=== PATIENT | female | born 1985 | race Caucasian/White ===

== ENCOUNTER 2018-02-02 12:21 | Emergency (ER) | payer OTHER ==
--- NOTE | 2018-02-02 13:15 | EDPHYS ---
Physician Documentation [facility] Name: Diana Leal Age: 32 yrs Sex: Female : 1985 Arrival Date: 02/02/2018 Time: 12:24 Bed 11 Private MD: ED Physician Wan Preston HPI: 02/02 15:00 This 32 yrs old Female presents to ER via Ambulatory with complaints of snw Medication Refill. 15:00 The patient presents to the emergency department requesting refill(s) for: Effexor. The snw patient chronically suffers from anxiety, depression. The patient has experienced similar episodes in the past. It is unknown whether or not the patient has recently seen a physician. + 15 wk IUP. 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 - Social history:: Smoking status: Patient/guardian denies using tobacco. - Ebola Screening: : Patient negative for fever greater than or equal to 101.5 degrees Fahrenheit, and additional compatible Ebola Virus Disease symptoms Patient denies exposure to infectious person Patient denies travel to an Ebola-affected area in the 21 days before illness onset No symptoms or risks identified at this time. ROS: 14:58 Constitutional: Negative for fever, chills, and weight loss, Eyes: Negative for injury, snw pain, redness, and discharge, ENT: Negative for injury, pain, and discharge, Neck: Negative for injury, pain, and swelling, Cardiovascular: Negative for chest pain, palpitations, and edema, Respiratory: Negative for shortness of breath, cough, wheezing, and pleuritic chest pain. 14:58 Back: Negative for injury and pain, : Negative for injury, bleeding, discharge, and swelling, MS/Extremity: Negative for injury and deformity, Skin: Negative for injury, rash, and discoloration, Neuro: Negative for headache, weakness, numbness, tingling, and seizure. 14:58 Abdomen/GI: Positive for , Negative for abdominal pain, vaginal bleeding. 14:58 Psych: Positive for anxiety, mild vertigo, nausea. Exam: 14:57 Constitutional: This is a well developed, well nourished patient who is awake, alert, snw and in no acute distress. Head/Face: Normocephalic, atraumatic. Eyes: Pupils equal round and reactive to light, extra-ocular motions intact. Lids and lashes normal. Conjunctiva and sclera are non-icteric and not injected. Cornea within normal limits. Periorbital areas with no swelling, redness, or edema. ENT: Nares patent. No nasal discharge, no septal abnormalities noted. Tympanic membranes are normal and external auditory canals are clear. Oropharynx with no redness, swelling, or masses, exudates, or evidence of obstruction, uvula midline. Mucous membranes moist. Neck: Trachea midline, no thyromegaly or masses palpated, and no cervical lymphadenopathy. Supple, full range of motion without nuchal rigidity, or vertebral point tenderness. No Meningismus. Chest/axilla: Normal chest wall appearance and motion. Nontender with no deformity. No lesions are appreciated. Cardiovascular: Regular rate and rhythm with a normal S1 and S2. No gallops, murmurs, or rubs. Normal PMI, no JVD. No pulse deficits. Respiratory: Lungs have equal breath sounds bilaterally, clear to auscultation and percussion. No rales, rhonchi or wheezes noted. No increased work of breathing, no retractions or nasal flaring. Abdomen/GI: Soft, non-tender, with normal bowel sounds. No distension or tympany. No guarding or rebound. No evidence of tenderness throughout. Gravid Back: No spinal tenderness. No costovertebral tenderness. Full range of motion. Skin: Warm, dry with normal turgor. Normal color with no rashes, no lesions, and no evidence of cellulitis. MS/ Extremity: Pulses equal, no cyanosis. Neurovascular intact. Full, normal range of motion. Neuro: Awake and alert, GCS 15, oriented to person, place, time, and situation. Cranial nerves II-XII grossly intact. Motor strength 5/5 in all extremities. Sensory grossly intact. Cerebellar exam normal. Normal gait. 14:57 Psych: Behavior/mood is anxious, Oriented to person, place, time. Vital Signs: 13:25 BP 111 / 76; Pulse 98; Resp 16; Temp 98.2; Pulse Ox 100% on R/A; Pain 0/10; iw MDM: 13:14 Patient medically screened. snw 15:00 Data reviewed: vital signs, nurses notes. Counseling: I had a detailed discussion with snw the patient and/or guardian regarding: the historical points, exam findings, and any diagnostic results supporting the discharge/admit diagnosis, the need for outpatient follow up, for definitive care, to return to the emergency department if symptoms worsen or persist or if there are any questions or concerns that arise at home. Special discussion: Based on the history and exam findings, there is no indication for further emergent testing or inpatient evaluation. I discussed with the patient/guardian the need to see the OB Gyne specialist for further evaluation of the symptoms. Administered Medications: No medications were administered Disposition: 15:11 Co-signature as Attending Physician, Wan Preston MD I agree with the assessment and kdr plan of care. Disposition: 02/02/18 13:14 Discharged to Home. Impression: Patient's unintentional underdosing of medication regimen for other reason. - Condition is Stable. - Discharge Instructions: Medicine Refill at the Emergency Department, Second Trimester of , [id number]. - Prescriptions for Vitamin 27- 0.8 mg Oral Tablet - take 1 tablet by ORAL route once daily; 60 tablet. promethazine 25 mg Oral Tablet - take 1 tablet by ORAL route every 6 hours As needed; 20 tablet. - Medication Reconciliation Form, Thank You Letter, Antibiotic Education, Prescription Opioid Use form. - Follow up: Private Physician; When: 2 - 3 days; Reason: Recheck today's complaints, Continuance of care, Re-evaluation by your physician. Follow up: Emergency Department; When: As needed; Reason: Worsening of condition. Signatures: Wan Preston MD MD kdr Therrien, Shelly, MICHELINE-C PARKING ENFORCEMENT MANAGER-Mikw Melly Mclaughlin RN RN iw Corrections: (The following items were deleted from the chart) 13:25 13:14 02/02/2018 13:14 Discharged to Home. Impression: Patient's unintentional iw underdosing of medication regimen for other reason. Condition is Stable. Forms are Medication Reconciliation Form, Thank You Letter, Antibiotic Education, Prescription Opioid Use. Follow up: Private Physician; When: 2 - 3 days; Reason: Recheck today's complaints, Continuance of care, Re-evaluation by your physician. Follow up: Emergency Department; When: As needed; Reason: Worsening of condition. snw
--- NOTE | 2018-02-02 13:15 | ER ---
Nurse's Notes [facility] Name: Diana Leal Age: 32 yrs Sex: Female : 1985 Arrival Date: 02/02/2018 Time: 12:24 Bed 11 Private MD: Diagnosis: Patient's unintentional underdosing of medication regimen for other reason Presentation: 02/02 12:47 Presenting complaint: Patient states: is 15 weeks , was taking Effexor 75 and iw Wellbutrin 100 but has been out of Effexor for 4 days due to insurance issues and change in doctors, pt still currently on Wellbutrin and was supposed to be weaned off Effexor, now feels like she is having withdrawal symptoms. Transition of care: patient was not received from another setting of care. Onset of symptoms was February 02, 2018. Risk Assessment: Do you want to hurt yourself or someone else? Patient reports no desire to harm self or others. Initial Sepsis Screen: Does the patient meet any 2 criteria? No. Patient's initial sepsis screen is negative. Does the patient have a suspected source of infection? No. Patient's initial sepsis screen is negative. Care prior to arrival: None. 12:47 Method Of Arrival: Ambulatory iw 12:47 Acuity: SEVERIANO 4 iw Triage Assessment: 12:50 General: Appears in no apparent distress. Behavior is calm, cooperative. 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 - Social history:: Smoking status: Patient/guardian denies using tobacco. - Ebola Screening: : Patient negative for fever greater than or equal to 101.5 degrees Fahrenheit, and additional compatible Ebola Virus Disease symptoms Patient denies exposure to infectious person Patient denies travel to an Ebola-affected area in the 21 days before illness onset No symptoms or risks identified at this time. Screenin:20 Abuse screen: Denies threats or abuse. Denies injuries from another. Nutritional iw screening: No deficits noted. Tuberculosis screening: No symptoms or risk factors identified. Fall Risk None identified. Assessment: 13:00 General: Appears in no apparent distress. comfortable, Behavior is calm, cooperative. iw Pain: Denies pain. Neuro: Level of Consciousness is awake, alert, obeys commands, Oriented to person, place, time, situation, Moves all extremities. Full function. Cardiovascular: Patient's skin is warm and dry. Respiratory: Respiratory effort is even, unlabored, Respiratory pattern is regular, symmetrical. GI: Reports nausea. Derm: Skin is intact, is healthy with good turgor. Musculoskeletal: Range of motion: intact in all extremities. Vital Signs: 13:25 BP 111 / 76; Pulse 98; Resp 16; Temp 98.2; Pulse Ox 100% on R/A; Pain 0/10; iw ED Course: 12:24 Patient arrived in ED. tw3 12:30 Jazz Murrell FNP-C [facility]. snw 12:30 Wan Preston MD is Attending Physician. snw 12:44 Melly Mclaughlin, RN is Primary Nurse. iw 12:49 Triage completed. iw 12:50 Arm band placed on. iw 12:50 Patient has correct armband on for positive identification. iw 13:24 No provider procedures requiring assistance completed. Patient did not have IV access iw during this emergency room visit. Administered Medications: No medications were administered Outcome: 13:14 Discharge ordered by . snw 13:24 Discharged to home ambulatory, with family. iw 13:24 Condition: good 13:24 Discharge instructions given to patient, family, Instructed on discharge instructions, follow up and referral plans. medication usage, Demonstrated understanding of instructions, follow-up care, medications, Prescriptions given X 2. 13:25 Patient left the ED. iw Signatures: Jazz Murrell FNP-C SLOT FLOOR SUPERVISOR-Csnw Melly Mclaughlin RN RN iw David, Agustina tw3
== END 2018-02-02 13:25 | disposition home or self-care (01) ==
LOC: ER 12:21
DX: O26.892 Other specified pregnancy related conditions, second trimester (principal); Z76.0 Encounter for issue of repeat prescription; Z91.138 Patient's unintentional underdosing of medication regimen for other reason
CPT/HCPCS: 99282

== ENCOUNTER 2018-07-28 12:20 | Emergency (ER) | payer OTHER ==
--- OUTSIDE RECORDS SUMMARY | 2018-07-28 12:22 | XMS REPORT ---
:1985 [facility] Address [address] [place] [address] Care Team Providers Name Role Phone Unavailable Unavailable Unavailable Problems This patient has no known problems. Allergies, Adverse Reactions, Alerts This patient has no known allergies or adverse reactions. Medications This patient has no known medications.
[2018-07-28] MEDS ORDERED: BUPIVACAINE 0.5% PF 10 ML VIAL ONE (12:49)
[2018-07-28] MEDS ORDERED: LIDOCAINE 1% MPF 5 ML VIAL ONE (12:49)
[2018-07-28] MEDS ORDERED: LIDOCAINE 1% W/EPI 1:100,000 MDV 50 ML VIAL ONE (12:57)
[2018-07-28] MEDS ORDERED: KETOROLAC 30 MG/ML INJ ONE (13:30)
[2018-07-28] MEDS ORDERED: Magnesium Sulfate 2gm IVPB 2 G/50 ML BAG IV ONE (14:11)
[2018-07-28 14:22] LABS: Urine Appearance CLOUDY; Urine Blood 2+ (NEG); Urine Color DK YELLOW; Urine Glucose NEGATIVE (NEG); Urine Protein 1+ (NEG); Urine Specific Gravity >=1.030 (1.005-1.030); Urine Urobilinogen 0.2 mg/dL (0.2-1.0)
[2018-07-28 14:26] LABS: Absolute Lymphocytes (CBC) 1.5 K/uL (0.7-4.9); Absolute Monocytes 0.5 K/uL (0.1-1.3); Absolute Neutrophil 3.8 K/uL (1.8-8.0); Basophils % 0.6 % (0-1.3); Eosinophils % 3.1 % (0-4.4); Hematocrit 29.4 % (36.0-45.0); Lymphocytes % 25.6 % (15.3-44.8); MPV 8.1 fL (7.6-11.3); Monocytes % 7.4 % (3.3-12.3); RBC Red Blood Cell Count 3.56 M/uL (3.86-4.86)
[2018-07-28 14:36] LABS: Urine Bilirubin NEGATIVE (NEG)
[2018-07-28 14:37] LABS: Urine Microscopic Reflex ORDER UMIC
[2018-07-28 14:41] LABS: Urine RBC <5 /HPF (NONE SEEN)
[2018-07-28 14:42] LABS: Urine Bacteria 20-50 /HPF (<20)
[2018-07-28 14:43] LABS: Urine Culture Reflex Order REFLEXED; Urine Mucus 2+ /HPF (NONE SEEN)
[2018-07-28 14:44] LABS: Urine Specific Gravity 1.025 (1.005-1.030)
[2018-07-28 14:47] LABS: ALT/SGPT 49 U/L (12-78); AST/SGOT 109 U/L (15-37); Albumin 2.9 g/dL (3.4-5.0); Alkaline Phosphatase 127 U/L (45-117); BUN Blood Urea Nitrogen 13 mg/dL (7-18); Bicarbonate 23 mmol/L (21-32); Bilirubin Total 0.3 mg/dL (0.2-1.0); Glucose Level 82 mg/dL (74-106); Potassium 4.1 mmol/L (3.5-5.1); Protein, Total 7.3 g/dL (6.4-8.2); Sodium Level 140 mmol/L (136-145)
[2018-07-28] MEDS ORDERED: METOCLOPRAMIDE 10 MG/2mL INJ ONE (14:59)
[2018-07-28] MEDS ORDERED: DIPHENHYDRAMINE 50 MG/ML VIAL ONE (14:59)
[2018-07-28] MEDS ORDERED: NA CHLORIDE 0.9% 250 ML ONE (15:00)
[2018-07-28] MEDS ORDERED: CEFTRIAXONE/SWI 1gm 1 GM/10 ML SYR ONE (15:02)
--- NOTE | 2018-07-28 15:58 | EDPHYS ---
Physician Documentation [facility] Name: Diana Leal Age: 32 yrs Sex: Female : 1985 Arrival Date: 07/28/2018 Time: 12:23 Bed 13 Private MD: ED Physician Amanuel Jamil HPI: 07/28 13:03 This 32 yrs old Female presents to ER via Ambulatory with complaints of High ps1 Blood Pressure, Toothache, Headache. 13:03 Patient states that her filling fell out and she has had pain for over a week. She has ps1 used Cavit for pain control. Now feels like she has a headache but was concerned because her BP was elevated and she just had a 4 weeks ago as she had previous c-sections. Concerned for pain vs. preeclampsia. Pain rated as moderate. No fever, scotoma or FND. . 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 - Social history:: Smoking status: Patient/guardian denies using tobacco. - Ebola Screening: : Patient negative for fever greater than or equal to 101.5 degrees Fahrenheit, and additional compatible Ebola Virus Disease symptoms. ROS: 13:03 Constitutional: Negative for fever, chills, and weight loss, Eyes: Negative for injury, ps1 pain, redness, and discharge, Cardiovascular: Negative for chest pain, palpitations, and edema, Respiratory: Negative for shortness of breath, cough, wheezing, and pleuritic chest pain, Abdomen/GI: Negative for abdominal pain, nausea, vomiting, diarrhea, and constipation, MS/Extremity: Negative for injury and deformity, Skin: Negative for injury, rash, and discoloration, Neuro: Negative for headache, weakness, numbness, tingling, and seizure. 13:03 ENT: Positive for dental pain. Exam: 13:03 Constitutional: This is a well developed, well nourished patient who is awake, alert, ps1 and in no acute distress. Head/Face: Normocephalic, atraumatic. Eyes: Pupils equal round and reactive to light, extra-ocular motions intact. Lids and lashes normal. Conjunctiva and sclera are non-icteric and not injected. Chest/axilla: Normal chest wall appearance and motion. Nontender with no deformity. No lesions are appreciated. 13:03 Respiratory: Lungs have equal breath sounds bilaterally, clear to auscultation and percussion. No rales, rhonchi or wheezes noted. No increased work of breathing, no retractions or nasal flaring. Abdomen/GI: Soft, non-tender, with normal bowel sounds. No distension or tympany. No guarding or rebound. No evidence of tenderness throughout. MS/ Extremity: Pulses equal, no cyanosis. Neurovascular intact. Full, normal range of motion. Neuro: Awake and alert, GCS 15, oriented to person, place, time, and situation. Cranial nerves II-XII grossly intact. Sensory grossly intact. 13:03 ENT: Nose: is normal, Examination of the other nostril shows no obvious abnormality, Mouth: is normal, Dental exam: dental caries, that is moderate, specifically in the upper left second molar (#15). 13:03 Cardiovascular: Rate: tachycardic, Rhythm: regular. Vital Signs: 12:28 BP 150 / 106; Pulse 122; Resp 16; Temp 97.4; Pulse Ox 98% on R/A; Weight 102.97 kg; la1 Height 5 ft. 2 in. (157.48 cm); Pain 7/10; 15:01 BP 146 / 110; Pulse 107; Resp 16 S; Pulse Ox 100% on R/A; jl7 15:55 BP 142 / 105; Pulse 108; Resp 16 S; Pulse Ox 100% on R/A; jl7 12:28 Body Mass Index 41.52 (102.97 kg, 157.48 cm) la1 Procedures: 13:03 Nerve block: (dental) of periapical block, Medication: Lidocaine 1% with epinephrine, ps1 Marcaine 0.5%, Amount: 2 mls were injected, Effect: the patient has resolution of the pain, Performed by Amanuel Jamil MD. MDM: 13:03 Data reviewed: vital signs, nurses notes, and as a result, I will discharge patient. ps1 Response to treatment: the patient's symptoms have resolved after treatment. 13:18 Patient medically screened. ps1 15:58 ED course: patient maintained a headache until mag and toradol given. Her BP then ps1 improved and headache improved. Dental pain completely resolved. Protienuria does not meet criteria for preeclampsia. Mid range pressures. Improved. No scotoma. Will have patient follow up with Dr. Lopez in [place]. . 07/28 13:51 Order name: CBC with Diff; Complete Time: 14:28 ps1 07/28 13:51 Order name: CMP; Complete Time: 14:51 ps1 07/28 13:51 Order name: Uric Acid; Complete Time: 14:51 ps1 07/28 13:51 Order name: UA; Complete Time: 14:45 ps1 07/28 13:51 Order name: Magnesium; Complete Time: 14:51 ps1 07/28 14:15 Order name: Urine --Ancillary (enter results); Complete Time: 14:45 eb 07/28 14:40 Order name: Urine Microscopic Only; Complete Time: 14:45 EDMS 07/28 14:44 Order name: Urine Culture EDMS Administered Medications: 13:23 Drug: TORadol 30 mg Route: IM; Site: right deltoid; [facility] 13:50 Follow up: Response: No adverse reaction; Pain is unchanged, physician notified jl7 14:15 Drug: Magnesium Sulfate 2 grams {Note: Verified infusion rate with Dr. Jamil.} Route: jl IVPB; Infused Over: 30 mins; Site: right wrist; 14:45 Follow up: Response: No adverse reaction; IV Status: Completed infusion jl7 14:53 Drug: Benadryl 25 mg Route: IVP; Site: right wrist; jl7 15:45 Follow up: Response: No adverse reaction; Pain is decreased jl7 14:55 Drug: Rocephin 1 grams Route: IV; Rate: calculated rate; Site: right wrist; jl7 14:58 Follow up: Response: No adverse reaction; IV Status: Completed infusion jl7 14:59 Drug: Reglan 20 mg Route: IVP; Site: right wrist; jl7 15:45 Follow up: Response: No adverse reaction; Pain is decreased jl7 Disposition: 07/28/18 15:57 Discharged to Home. Impression: Acute dental pain, Migraine, Hypertension. - Condition is Stable. - Discharge Instructions: Dental Pain, Hypertension. - Prescriptions for Clindamycin HCl 300 mg Oral Capsule - take 1 capsule by ORAL route every 6 hours for 10 days; 40 capsule. Tylenol- Codeine #3 300-30 mg Oral Tablet - take 2 tablet by ORAL route every 6 hours As needed; 30 tablet. Zofran 4 mg Oral Tablet - take 1 tablet by ORAL route every 12 hours As needed; 20 tablet. - Medication Reconciliation Form, Thank You Letter, Antibiotic Education, Prescription Opioid Use form. - Follow up: Private Physician; When: 48 Hours; Reason: Re-evaluation by your physician. Follow up: Emergency Department; When: As needed; Reason: Worsening of condition. - Problem is an ongoing problem. - Symptoms have improved. Signatures: Dispatcher [employer] [facility] Abebe Gallagher RN RN la1 Verona Ogden RN RN jl7 Amanuel Jamil MD MD ps1 Corrections: (The following items were deleted from the chart) 14:45 14:15 URINE DIPSTICK--ANCILLARY+U.LAB.BRZ ordered. [facility] 16:29 15:57 07/28/2018 15:57 Discharged to Home. Impression: Acute dental pain; Migraine; jl7 Hypertension. Condition is Stable. Forms are Medication Reconciliation Form, Thank You Letter, Antibiotic Education, Prescription Opioid Use. Follow up: Private Physician; When: 48 Hours; Reason: Re-evaluation by your physician. Follow up: Emergency Department; When: As needed; Reason: Worsening of condition. Problem is an ongoing problem. Symptoms have improved. ps1
--- NOTE | 2018-07-28 15:58 | ER ---
Nurse's Notes [facility] Name: Diana Leal Age: 32 yrs Sex: Female : 1985 Arrival Date: 07/28/2018 Time: 12:23 Bed 13 Private MD: Diagnosis: Acute dental pain;Migraine;Hypertension Presentation: 07/28 12:26 Presenting complaint: Patient states: I had a 7 days ago at [facility] and for the la1 last two days my BP has been elevated in the 140s/100s. I also have left upper dental pain for the last 4 days and I have not been treated for it yet. Transition of care: patient was not received from another setting of care. Onset of symptoms was July 28, 2018. Risk Assessment: Do you want to hurt yourself or someone else? Patient reports no desire to harm self or others. Initial Sepsis Screen: Does the patient meet any 2 criteria? No. Patient's initial sepsis screen is negative. Does the patient have a suspected source of infection? No. Patient's initial sepsis screen is negative. Care prior to arrival: None. 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 - Social history:: Smoking status: Patient/guardian denies using tobacco. - Ebola Screening: : Patient negative for fever greater than or equal to 101.5 degrees Fahrenheit, and additional compatible Ebola Virus Disease symptoms. Screenin:00 Abuse screen: Denies threats or abuse. Denies injuries from another. Nutritional jl7 screening: No deficits noted. Tuberculosis screening: No symptoms or risk factors identified. Fall Risk None identified. Assessment: 13:00 General: Appears in no apparent distress. uncomfortable, Behavior is calm, cooperative, jl7 appropriate for age. Pain: Complains of pain in upper left second molar (#15) and PEARL Pain currently is 8 out of 10 on a pain scale. Neuro: Level of Consciousness is awake, alert, obeys commands, Oriented to person, place, time, situation. Cardiovascular: Patient's skin is warm and dry. Respiratory: Airway is patent Respiratory effort is even, unlabored, Respiratory pattern is regular, symmetrical. GI: No signs and/or symptoms were reported involving the gastrointestinal system. : No signs and/or symptoms were reported regarding the genitourinary system. EENT: Oral mucosa is moist. Derm: Skin is pink, warm \\T\\ dry. Musculoskeletal: No signs and/or symptoms reported regarding the musculoskeletal system. 13:45 Reassessment: Pt reports no change in pain, ERD notified, see MAR for orders. jl7 14:45 Reassessment: Pt reports no change in PEARL, ERD notified, see MAR for orders. jl7 15:45 Reassessment: Pt reports decreased pain, states "I feel a lot better." ERD notified. jl7 Vital Signs: 12:28 BP 150 / 106; Pulse 122; Resp 16; Temp 97.4; Pulse Ox 98% on R/A; Weight 102.97 kg; la1 Height 5 ft. 2 in. (157.48 cm); Pain 7/10; 15:01 BP 146 / 110; Pulse 107; Resp 16 S; Pulse Ox 100% on R/A; jl7 15:55 BP 142 / 105; Pulse 108; Resp 16 S; Pulse Ox 100% on R/A; jl7 12:28 Body Mass Index 41.52 (102.97 kg, 157.48 cm) la1 ED Course: 12:23 Patient arrived in ED. mr 12:24 Amanuel Jamil MD is Attending Physician. ps1 12:27 Triage completed. la1 12:28 Arm band placed on left wrist. la1 13:00 Verona Ogden, CLAUDINE is Primary Nurse. jl7 13:00 Patient has correct armband on for positive identification. Placed in gown. Bed in low jl7 position. Call light in reach. Side rails up X 1. Pulse ox on. NIBP on. 13:45 Initial lab(s) drawn, by me, sent to lab. Inserted saline lock: 22 gauge in right jl7 wrist, using aseptic technique. Blood collected. 16:26 No provider procedures requiring assistance completed. IV discontinued, intact, jl7 bleeding controlled, No redness/swelling at site. Pressure dressing applied. Administered Medications: 13:23 Drug: TORadol 30 mg Route: IM; Site: right deltoid; jl7 13:50 Follow up: Response: No adverse reaction; Pain is unchanged, physician notified jl7 14:15 Drug: Magnesium Sulfate 2 grams {Note: Verified infusion rate with Dr. Jamil.} Route: jl7 IVPB; Infused Over: 30 mins; Site: right wrist; 14:45 Follow up: Response: No adverse reaction; IV Status: Completed infusion jl7 14:53 Drug: Benadryl 25 mg Route: IVP; Site: right wrist; jl7 15:45 Follow up: Response: No adverse reaction; Pain is decreased jl7 14:55 Drug: Rocephin 1 grams Route: IV; Rate: calculated rate; Site: right wrist; jl7 14:58 Follow up: Response: No adverse reaction; IV Status: Completed infusion jl7 14:59 Drug: Reglan 20 mg Route: IVP; Site: right wrist; jl7 15:45 Follow up: Response: No adverse reaction; Pain is decreased jl7 Outcome: 15:57 Discharge ordered by . ps1 16:26 Discharged to home ambulatory. jl7 16:26 Condition: stable 16:26 Discharge instructions given to patient, Instructed on discharge instructions, follow up and referral plans. medication usage, Demonstrated understanding of instructions, follow-up care, medications, Prescriptions given X 3. 16:29 Patient left the ED. jl7 Signatures: Judith Pina Lee, RN RN la1 Verona Ogden RN RN jl7 Amanuel Jamil MD MD ps1
== END 2018-07-28 16:29 | disposition home or self-care (01) ==
LOC: ER 12:20
DX: K08.89 Other specified disorders of teeth and supporting structures (principal); G43.909 Migraine, unspecified, not intractable, without status migrainosus; I10 Essential (primary) hypertension; Z88.1 Allergy status to other antibiotic agents
CPT/HCPCS: 36415; 80053; 81003; 81015; 81025; 83735; 84550; 85025; 87077; 87086; 87088; 87186; 96365; 96372; 96375; 99284; J0696; J2765; J3475

== ENCOUNTER 2020-05-17 20:01 | Inpatient (IN) | payer OTHER, SELFPAY ==
--- OUTSIDE RECORDS SUMMARY | 2020-05-17 20:03 | XMS REPORT | Continuity of Care Document ---
:1985 Author Organization [facility] t Address [address] [place] [address] [address]. [address] [place] [id number] Care Team Providers Name Role Phone Unavailable Unavailable Unavailable Problems This patient has no known problems. Allergies, Adverse Reactions, Alerts This patient has no known allergies or adverse reactions. Medications This patient has no known medications. Procedures This patient has no known procedures. Results This patient has no known results.
[2020-05-17 20:58] LABS: Basophils % 0.2 % (0-1.3); Hematocrit 36.2 % (36.0-45.0); Lymphocytes % 20.7 % (15.3-44.8); MPV 9.6 fL (7.6-11.3); RBC Red Blood Cell Count 3.96 M/uL (3.86-4.86)
[2020-05-17] MEDS ORDERED: ACETAMINOPHEN 500 MG TAB ONE (21:09)
[2020-05-17] MEDS ORDERED: LEVALBUTEROL 1.25 MG/3 ML NEB ONE (21:09)
[2020-05-17] MEDS ORDERED: IBUPROFEN 200 MG TAB PO ONE (21:09)
[2020-05-17] MEDS ORDERED: dexAMETHasone 10 MG/ML VIAL ONE (21:09)
[2020-05-17] MEDS ORDERED: IBUPROFEN 400 MG TAB ONE (21:10)
[2020-05-17] MEDS ORDERED: NA CHLORIDE 0.9% 1,000 ML ONE (21:10)
[2020-05-17 21:24] LABS: ALT/SGPT 58 U/L (12-78); AST/SGOT 59 U/L (15-37); Albumin 3.5 g/dL (3.4-5.0); Alkaline Phosphatase 56 U/L (45-117); BUN Blood Urea Nitrogen 10 mg/dL (7-18); Bicarbonate 25 mmol/L (21-32); Bilirubin Total 0.3 mg/dL (0.2-1.0); Glucose Level 86 mg/dL (74-106); Potassium 3.8 mmol/L (3.5-5.1); Protein, Total 7.5 g/dL (6.4-8.2); Sodium Level 141 mmol/L (136-145)
[2020-05-17] MEDS ORDERED: MAGNESIUM SULFATE 1 gm IVPB 1 GM/100 ML BAG IV ONE (21:36)
[2020-05-17 22:19] LABS: SARS-COV-2 RT PCR POSITIVE (NEGATIVE)
--- NOTE | 2020-05-17 22:49 | ER ---
Nurse's Notes [facility] Name: Diana Leal Age: 34 yrs Sex: Female : 1985 Arrival Date: 05/17/2020 Time: 20:03 Bed 17 Private MD: Diagnosis: Coronavirus infection, unspecified;Hypoxia Presentation: 05/17 20:10 Chief complaint: Patient states: Covid positive last week. Started having SOB and high ll1 fever that wouldn't break for 2 days. + N/V today. Coronavirus screen: Client denies travel out of the [place] in the last 14 days. congestion, cough unrelated to allergies, difficulty breathing, fatigue, fever, nausea, shortness of breath, loss of taste or smell, vomiting. Client presents with at least one sign or symptom that may indicate coronavirus-19. Standard/surgical mask placed on the client. Client reports previous positive COVID test result. Ebola Screen: Patient denies travel to an Ebola-affected area in the 21 days before illness onset. Initial Sepsis Screen: Does the patient meet any 2 criteria? Temp <36.0*C (96.8*F)) or > 38.3*C (100.9*F). HR > 90 bpm. Does the patient have a suspected source of infection? Yes: Productive cough/pneumonia. Risk Assessment: Do you want to hurt yourself or someone else? Patient reports no desire to harm self or others. Onset of symptoms was April 30, 2020. 20:10 Method Of Arrival: Ambulatory ll1 20:10 Acuity: SEVERIANO 2 ll1 Historical: - Allergies: 20:10 Neomycin; ll1 - PMHx: 20:10 None; ll1 - PSHx: 20:10 ; Tubal ligation; ll1 - Immunization history:: Flu vaccine is up to date. - Social history:: Smoking status: Patient denies any tobacco usage or history of. Screenin:51 Abuse screen: Denies threats or abuse. Nutritional screening: No deficits noted. ea Tuberculosis screening: No symptoms or risk factors identified. Fall Risk IV access (20 points). Assessment: 20:45 General: Appears uncomfortable, Behavior is appropriate for age. Pain: Denies pain. ea Neuro: Level of Consciousness is awake, alert, obeys commands, Oriented to person, place, time. Cardiovascular: Patient's skin is warm and dry. Respiratory: Airway is patent Respiratory effort is labored, Respiratory pattern is symmetrical, tachypnea. Derm: Skin is dry, Skin is pale, Skin temperature is warm. 21:50 Reassessment: Patient and/or family updated on plan of care and expected duration. Pain ea level reassessed. Pt on room air sitting on stretcher, sats at 85%. Pt placed on O2 at 2L per nasal cannula. 23:41 Reassessment: Patient and/or family updated on plan of care and expected duration. Pain ea level reassessed. Report called to receiving nurse in ICU, pt alert and oriented x 3. Respirations tachypneic, pt remains on O2 at 5 L per nasal cannula. Vital Signs: 20:10 BP 137 / 94; Pulse 123; Resp 24; Temp 102.0; Pulse Ox 92% ; Weight 106.59 kg; Height 5 ll1 ft. 2 in. (157.48 cm); Pain 9/10; 20:15 BP 122 / 79; Pulse 110; Resp 24; Pulse Ox 85% on R/A; ea 21:50 Pulse Ox 83% on R/A; ea 21:54 BP 142 / 84; Pulse 120; Resp 22; Temp 100.2; Pulse Ox 87% on 2 lpm NC; ea 23:43 BP 120 / 70; Pulse 100; Resp 22; Temp 99.9; Pulse Ox 90% on 5 lpm NC; ea 20:10 Body Mass Index 42.98 (106.59 kg, 157.48 cm) ll1 20:15 placed on o2 at 2 L per nasal cannula ea 21:50 pt placed on O2 at 2 L per nasal cannula ea 21:54 Pt placed on O2 at 5L per nasal cannula ea ED Course: 20:03 Patient arrived in ED. bp1 20:09 Arm band placed on. ll1 20:12 Triage completed. ll1 20:15 Patient has correct armband on for positive identification. Placed in gown. Bed in low ea position. Call light in reach. Side rails up X 1. media monitor on. Pulse ox on. NIBP on. 20:17 Yordan Briggs PA is PHCP. saulo 20:17 Shen Sinha MD is Attending Physician. [facility] 20:30 Caroline Donohue, RN is Primary Nurse. ea 21:31 Chest Single View XRAY In Process Unspecified. EDMS 22:42 Sebastien Costa MD is Hospitalizing Provider. jmm 22:53 CT Chest For PE Angio In Process Unspecified. EDMS 23:40 No provider procedures requiring assistance completed. Patient admitted, IV remains in ea place. Administered Medications: 21:04 Drug: Decadron - Dexamethasone 10 mg Route: IVP; Site: right antecubital; ea 21:39 Follow up: Response: No adverse reaction ea 21:04 Drug: Xopenex (3) 1.25 mg Route: Inhalation; ea 21:39 Follow up: Response: No adverse reaction ea 21:04 Drug: Ibuprofen 600 mg Route: PO; ea 21:39 Follow up: Response: No adverse reaction ea 21:05 Drug: NS 0.9% 1000 ml Route: IV; Rate: 1 bolus; Site: right antecubital; ea 21:39 Follow up: Response: No adverse reaction; IV Status: Completed infusion; IV Intake: ea 1000ml 21:05 Drug: Tylenol 1000 mg Route: PO; ea 21:40 Follow up: Response: No adverse reaction ea 21:23 Drug: Magnesium Sulfate 1 grams Route: IVPB; Infused Over: 1 hrs; Site: left ea antecubital; 23:53 Follow up: Response: No adverse reaction; IV Status: Completed infusion ea Intake: 21:39 IV: 1000ml; Total: 1000ml. ea Outcome: 22:48 Decision to Hospitalize by Provider. jmm 23:43 Admitted to ICU accompanied by tech, via stretcher, room 3, with oxygen, on monitor, ea Report called to Receiving nurse on third floor. 23:43 Condition: stable 23:43 Instructed on the need for admit. 23:54 Patient left the ED. ea Signatures: Dispatcher [employer] EDMS Yordan Briggs PA PA jmm Antunez, Elena, RN RN ea Lewis, Lynsay, RN RN ll1 Diana Reyes Corrections: (The following items were deleted from the chart) 21:51 21:50 Reassessment: Patient and/or family updated on plan of care and expected ea duration. Pain level reassessed. Pt on room air sitting on stretcher, sats at 85% ea
--- NOTE | 2020-05-17 22:49 | EDPHYS ---
Physician Documentation [facility] Name: Diana Leal Age: 34 yrs Sex: Female : 1985 Arrival Date: 05/17/2020 Time: 20:03 Bed 17 Private MD: ED Physician Shen Sinha HPI: 05/17 20:23 This 34 yrs old Female presents to ER via Ambulatory with complaints of jmm COVID+, Shortness Of Breath, Fever. 20:23 Onset: The symptoms/episode began/occurred gradually, 1 week(s) ago. The patient's jmm shortness of breath is aggravated by exertion, light activity. Associated signs and symptoms: Pertinent positives: non-productive cough. This is a 34 year old female with no chronic medical conditions that presents to the ED with complaints of cough, shortness of breath beginning 1 week ago when diagnosed with covid. Patient states her o2 went down today. . Historical: - Allergies: 20:10 Neomycin; ll1 - PMHx: 20:10 None; ll1 - PSHx: 20:10 ; Tubal ligation; ll1 - Immunization history:: Flu vaccine is up to date. - Social history:: Smoking status: Patient denies any tobacco usage or history of. ROS: 20:23 Constitutional: Negative for fever, chills, and weight loss, Cardiovascular: Negative jmm for chest pain, palpitations, and edema. 20:23 Respiratory: Positive for cough, shortness of breath. 20:23 All other systems are negative. Exam: 20:23 Constitutional: This is a well developed, well nourished patient who is awake, alert, jmm and in no acute distress. Head/Face: atraumatic. Eyes: EOMI, no conjunctival erythema appreciated ENT: Moist Mucus Membranes Neck: Trachea midline, Supple Chest/axilla: Normal chest wall appearance and motion. Cardiovascular: Regular rate and rhythm. No edema appreciated 20:23 Skin: General appearance color normal MS/ Extremity: Moves all extremities, no obvious deformities appreciated, no edema noted to the lower extremities Neuro: Awake and alert, normal gait Psych: Behavior is normal, Mood is normal, Patient is cooperative and pleasant 20:23 Respiratory: mild respiratory distress is noted, Respirations: labored breathing, Breath sounds: decreased breath sounds, are scattered. 20:23 Abdomen/GI: Inspection: obese Vital Signs: 20:10 BP 137 / 94; Pulse 123; Resp 24; Temp 102.0; Pulse Ox 92% ; Weight 106.59 kg; Height 5 ll1 ft. 2 in. (157.48 cm); Pain 9/10; 20:15 BP 122 / 79; Pulse 110; Resp 24; Pulse Ox 85% on R/A; ea 21:50 Pulse Ox 83% on R/A; ea 21:54 BP 142 / 84; Pulse 120; Resp 22; Temp 100.2; Pulse Ox 87% on 2 lpm NC; ea 23:43 BP 120 / 70; Pulse 100; Resp 22; Temp 99.9; Pulse Ox 90% on 5 lpm NC; ea 20:10 Body Mass Index 42.98 (106.59 kg, 157.48 cm) ll1 20:15 placed on o2 at 2 L per nasal cannula ea 21:50 pt placed on O2 at 2 L per nasal cannula ea 21:54 Pt placed on O2 at 5L per nasal cannula ea MDM: 20:23 Patient medically screened. [facility] 22:42 Data reviewed: vital signs, nurses notes. Counseling: I had a detailed discussion with [facility] the patient and/or guardian regarding: the historical points, exam findings, and any diagnostic results supporting the discharge/admit diagnosis, lab results, radiology results, the need for further work-up and treatment in the hospital. ED course: I discussed the patient with Dr. Costa whom accepted the patient for admission. . 05/17 20:24 Order name: CBC with Diff; Complete Time: 21:06 [facility] 05/17 20:24 Order name: CMP; Complete Time: 21:56 [facility] 05/17 20:24 Order name: CRP; Complete Time: 21:56 [facility] 05/17 20:24 Order name: Blood Culture Adult (2) [facility] 05/17 20:24 Order name: Procalcitonin; Complete Time: 21:56 [facility] 05/17 20:24 Order name: Lactate; Complete Time: 21:14 [facility] 05/17 20:32 Order name: Chest Single View XRAY [facility] 05/17 20:32 Order name: D-Dimer; Complete Time: 21:56 [facility] 05/17 22:02 Order name: CT Chest For PE Angio [facility] 05/17 22:19 Order name: COVID-19/FLU A+B; Complete Time: 22:25 EDMS 05/17 20:24 Order name: Saline Lock; Complete Time: 21:05 [facility] Administered Medications: 21:04 Drug: Decadron - Dexamethasone 10 mg Route: IVP; Site: right antecubital; ea 21:39 Follow up: Response: No adverse reaction ea 21:04 Drug: Xopenex (3) 1.25 mg Route: Inhalation; ea 21:39 Follow up: Response: No adverse reaction ea 21:04 Drug: Ibuprofen 600 mg Route: PO; ea 21:39 Follow up: Response: No adverse reaction ea 21:05 Drug: NS 0.9% 1000 ml Route: IV; Rate: 1 bolus; Site: right antecubital; ea 21:39 Follow up: Response: No adverse reaction; IV Status: Completed infusion; IV Intake: ea 1000ml 21:05 Drug: Tylenol 1000 mg Route: PO; ea 21:40 Follow up: Response: No adverse reaction ea 21:23 Drug: Magnesium Sulfate 1 grams Route: IVPB; Infused Over: 1 hrs; Site: left ea antecubital; 23:53 Follow up: Response: No adverse reaction; IV Status: Completed infusion ea Disposition: 05/18 02:55 Co-signature as Attending Physician, Shen Sinha MD. 7 Disposition: 05/17/20 22:48 Hospitalization ordered by Sebastien Costa for Observation. Preliminary diagnosis are Coronavirus infection, unspecified, Hypoxia. - Bed requested for Intensive Care Unit. - Status is Observation. ea - Condition is Stable. - Problem is new. - Symptoms are unchanged. Signatures: Dispatcher [employer] EDKS Lilian Lorenz RN Yordan Hardwick PA PA jmm Antunez, Elena, RN RN ea Lewis, Lynsay RN RN [facility] Shen Sinha MD MD 7 Corrections: (The following items were deleted from the chart) 05/17 21:22 20:26 CORONAVIRUS+MR.LAB.BRZ ordered. EDKS EDMS 21:22 20:27 Influenza Screen (A \T\ B)+BA.LAB.BRZ ordered. EDKS EDMS 23:17 22:48 Hospitalization Ordered by Sebastien Costa MD for Observation. Preliminary diagnosis is Coronavirus infection, unspecified; Hypoxia. Bed requested for Telemetry/MedSurg (observation). Status is Observation. Condition is Stable. Problem is new. Symptoms are unchanged. roland 23:54 23:17 05/17/2020 22:48 Hospitalization Ordered by Sebastien Costa MD for Observation. ea Preliminary diagnosis is Coronavirus infection, unspecified; Hypoxia. Bed requested for Intensive Care Unit. Status is Observation. Condition is Stable. Problem is new. Symptoms are unchanged. mw
--- NOTE | 2020-05-17 23:06 | P.HP ---
Certification for Inpatient Patient admitted to: Inpatient With expected LOS: >2 Midnights Practitioner: I am a practitioner with admitting privileges, knowledge of patient current condition, hospital course, and medical plan of care. Services: Services provided to patient in accordance with Admission requirements found in Title 42 Section 412.3 of the Code of Federal Regulations Patient History Date of Service: 05/17/20 Reason for admission: Shortness of breath History of Present Illness: 34 yo female with no past medical history who was diagnosed with COVID 19 , 1 week ago came to ER with shortness of breath which has been progressively worsening over the last 1 week associated with cough with mucoid expectoration. Patient also complains of headache as well as fever. Patient also noted to be hypoxic in the ER and was admitted for further management At the time of interview in the ER the patient is still short of breath and his oxygen supplementation to keep saturation more than 90. Patient is being admitted for further management of covid pneumonia. - Past Medical/Surgical History Past Medical History: Reviewed- Non-Contributory Past Surgical History: Reviewed- Non-Contributory - Family History Family History: Reviewed- Non-Contributory - Social History Smoking Status: Never smoker Review of Systems 10-point ROS is otherwise unremarkable Physical Examination - Vital Signs Temperature: 102.1 F Blood Pressure: 136/72 Pulse: 76 Respirations: 20 - Physical Exam General: Alert, Oriented x3, Mild distress HEENT: Atraumatic, Normocephalic Neck: Supple Respiratory: Diminished, Crackles/rales Cardiovascular: No edema, Regular rate/rhythm, Normal S1 S2 Capillary refill: <2 Seconds Gastrointestinal: Soft and benign, W/out hepatosplenomegaly Musculoskeletal: No clubbing, No swelling Integumentary: No rashes, No breakdown Neurological: Normal speech, Normal strength at 5/5 x4 extr Lymphatics: No axilla or inguinal lymphadenopathy - Studies Laboratory Data (last 24 hrs) 05/17/20 20:46: Sodium 141, Potassium 3.8, BUN 10, Creatinine 0.60, Glucose 86, Total Bilirubin 0.3, AST 59 H, ALT 58, Alkaline Phosphatase 56 05/17/20 20:46: WBC 4.60, Hgb 12.1, Hct 36.2, Plt Count 196 Assessment and Plan - Problems (Diagnosis) (1) Acute respiratory failure with hypoxia Current Visit: Yes Status: Acute (2) COVID-19 Current Visit: Yes Status: Acute - Plan Acute hypoxic respiratory failure Covid 19 pneumonia Plan Monitor under telemetry. Oxygen supplementation Will start on steroids Start on empiric antibiotics Get a pulmonology consult in a.m. CT chest is pending start with full anticoagulation Supportive measures GI/DVT prophylaxis - Advance Directives Does patient have a Living Will: No Does patient have a Durable POA for Healthcare: No Time Spent Managing Pts Care (In Minutes): 42
[2020-05-17] MEDS ORDERED: ONDANSETRON 4 MG/2 ML VIAL IV PRN (23:10)
[2020-05-18 05:14] LABS: Absolute Lymphocytes (CBC) 0.4 K/uL (0.7-4.9); Basophils % 0.1 % (0-1.3); Hematocrit 34.8 % (36.0-45.0); Lymphocytes % 8.2 % (15.3-44.8); MPV 9.7 fL (7.6-11.3); RBC Red Blood Cell Count 3.76 M/uL (3.86-4.86)
[2020-05-18 05:47] LABS: ALT/SGPT 57 U/L (12-78); AST/SGOT 60 U/L (15-37); Albumin 3.2 g/dL (3.4-5.0); Alkaline Phosphatase 51 U/L (45-117); BUN Blood Urea Nitrogen 8 mg/dL (7-18); Bicarbonate 25 mmol/L (21-32); Bilirubin Total 0.2 mg/dL (0.2-1.0); Ferritin 106.2 ng/mL (8-388); Glucose Level 178 mg/dL (74-106); HDL Cholesterol 45 mg/dL (40-60); LDL Cholesterol, Calculated 58 (<130); Potassium 4.3 mmol/L (3.5-5.1); Protein, Total 7.2 g/dL (6.4-8.2); Sodium Level 141 mmol/L (136-145)
--- NOTE | 2020-05-18 06:34 | RAD REPORT ---
EXAM DESCRIPTION: Ghanshyam Single View05/17/2020 9:31 pm CLINICAL HISTORY: Shortness of breath COMPARISON: none FINDINGS: Moderate bilateral pulmonary opacities. The heart is normal size IMPRESSION: Moderate bilateral pulmonary opacities likely pneumonia
[2020-05-18 07:44] LABS: Blood Morphology Comment NOT SEEN (NOT SEEN); Platelet Estimate ADEQ
[2020-05-18] MEDS: FAMOTIDINE 20 MG/2 ML VIAL IV SCH ×2 (07:56→20:39)
[2020-05-18] MEDS: METHYLPREDNISOLONE 40 MG INJ IV SCH ×2 (07:57→20:39)
[2020-05-18] MEDS: VENLAFAXINE HCL 75 MG TABLET PO SCH (08:03)
[2020-05-18] MEDS ORDERED: Remdesivir 200 MG in NA CHLORIDE 0.9% 250 ML IV ONE (08:45)
[2020-05-18] MEDS ORDERED: ENOXAPARIN 100 MG/ML SYR SQ SCH (09:00)
[2020-05-18] MEDS ORDERED: CEFTRIAXONE 1 GM/NS 50 ML 1 GM/50 ML BAG IV SCH (09:00)
[2020-05-18] MEDS ORDERED: AZITHROMYCIN IV 500 MG in NA CHLORIDE 0.9% 250 ML IVPB SCH (09:00)
[2020-05-18] MEDS ORDERED: CEFTRIAXONE/SWI 1gm 1 GM/10 ML SYR IV SCH (09:00)
--- NOTE | 2020-05-18 11:21 | RAD REPORT ---
EXAM DESCRIPTION: CT - Chest For Pe Angio - 05/18/2020 4:50 am CLINICAL HISTORY: Shortness of breath, elev d d-dimer TECHNIQUE: Contiguous axial images obtained through the chest during angiographic phase following th e uneventful administration of IV contrast. Sagittal and coronal reformatted images were provided. DC P reformatted images were provided. This exam was performed according to our departmental dose-optimization program, which includes autom ated exposure control, adjustment of the mA and/or kV according to patient size and/or use of iterati ve reconstruction technique. COMPARISON: No prior exams provided for comparison. FINDINGS: Diagnostic quality: There is fair opacification of the pulmonary arterial tree. Motion art ifact degrades image quality and limits evaluation of segmental and subsegmental vessels. Lungs: Multifocal patchy consolidative changes, more confluent within the bilateral lower lobes. Airw ays are patent. Pleura: No effusion. No pneumothorax. Heart and pericardium: The heart is enlarged. No pericardial effusion. Mediastinum and williams: No pathologically enlarged lymph nodes. Lower neck and chest wall: Unremarkable Vessels: No pulmonary arterial filling defects. No thoracic aortic aneurysm. Upper abdomen: The liver is enlarged and diffusely low in density compatible with steatosis. Bones: Unremarkable IMPRESSION: 1. Somewhat suboptimal opacification of the pulmonary arterial tree as well as motion artifact which degrades image quality and limits evaluation of segmental and subsegmental vessels. No central pulmonary embolic disease identified. 2. Multifocal infiltrates bilaterally. 3. Other findings as above. Electronically signed by: Manoj Truong MD 05/17/2020 11:11 PM ROUSTABOUT HAND Due to temporary technical issues with the PACS/Fluency reporting system, reports are being signed by the in house radiologist without review as a courtesy to ensure prompt reporting. The interpreting r adiologist is fully responsible for the content of the report.
[2020-05-18] MEDS ORDERED: IVERMECTIN 3 MG TABLET PO ONE (12:38)
--- NOTE | 2020-05-18 12:38 | P.CNS ---
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 Complaint: Shortness of breath History of Present Illness: Patient is 34 years of age no past medical history was diagnosed augustine virus a week ago became progressively worse more cough sputum shortness of breath and appeared in the hospital with hypoxemia she is doing better Allergies neomycin Allergy (Verified 05/18/20 00:38) Itching Home Medications: Venlafaxine HCl [Effexor] 75 mg PO DAILY 05/18/20 - Past Medical/Surgical History Diabetic: No -: anxiety -: -: tubal ligation - Family History Father Medical History: Hypertension - Social History Alcohol use: No CD- Drugs: No Caffeine use: Yes Place of Residence: Home Review of Systems General: Weakness Respiratory: Shortness of Breath Physical Examination Temp Pulse Resp BP Pulse Ox 98.2 F 83 19 120/90 88 L 05/18/20 12:00 05/18/20 08:00 05/18/20 08:00 05/18/20 08:00 05/18/20 08:00 Laboratory Data (last 24 hrs) 05/17/20 20:46: Sodium 141, Potassium 3.8, BUN 10, Creatinine 0.60, Glucose 86, Total Bilirubin 0.3, AST 59 H, ALT 58, Alkaline Phosphatase 56 05/17/20 20:46: WBC 4.60, Hgb 12.1, Hct 36.2, Plt Count 196 - Problems (1) 2019 novel coronavirus detected Current Visit: Yes Status: Acute Plan: Patient is 34 years of age known medical problems admitted with hypoxemia from augustine virus pneumonia she is doing much better labs reviewed no evidence of pulmonary embolism labs reviewed CT scan reviewed Dc antibiotics her white count is normal pro calcitonin level is negative physical bilateral patchy changes possible discharge tomorrow 1 dose of ivermectin continue with steroid
[2020-05-18] MEDS: ACETAMINOPHEN 500 MG TAB PO PRN ×2 (13:48→17:27)
--- NOTE | 2020-05-18 15:53 | P.PN ---
Subjective Date of Service: 05/18/20 Chief Complaint: Shortness of breath Subjective: Other (Patient on 5 L. Patient reports some improvement.) Physical Examination - Vital Signs Temperature: 98.2 F Blood Pressure: 143/105 Pulse: 104 Respirations: 25 Pulse Ox (%): 84 - Physical Exam General: Alert, Cooperative HEENT: Atraumatic Respiratory: Other (On 5 L per nasal cannula. No respiratory distress noted) Cardiovascular: Normal pulses Gastrointestinal: No guarding Neurological: Normal speech, Normal strength at 5/5 x4 extr, Normal tone, Normal affect - Studies Laboratory Data (last 24 hrs) 05/17/20 20:46: Sodium 141, Potassium 3.8, BUN 10, Creatinine 0.60, Glucose 86, Total Bilirubin 0.3, AST 59 H, ALT 58, Alkaline Phosphatase 56 05/17/20 20:46: WBC 4.60, Hgb 12.1, Hct 36.2, Plt Count 196 Medications List Reviewed: Yes Assessment & Plan Discharge Plan: Home Plan to discharge in: 72 Hours Physician Review Additional Text: Impression: Dyspnea secondary to acute respiratory failure with hypoxia related to bilateral COVID 19 pneumonia Depression with anxiety Obesity the [place] 44.9 Plan: Dyspnea secondary to acute respiratory failure with hypoxia related to bilateral COVID 19 pneumonia: Continue IV steroids and supplementation. Discussed plan for initiating Remdesivir. Patient understands potential side affects and monitoring of medication. Will start medication. Continue to wean off oxygen. Currently on 5 L. monitor liver function test. Monitor CRP and ferritin. Continue DVT prophylaxis. Encourage ambulation. Encourage incentive spirometer. Will discuss further with pulmonology. Anticipate improvement over the next 72 hr. Depression with anxiety: Restart home medication Obesity, BMI 44.9: Address lifestyle modification education. Time Spent Managing Pts Care (In Minutes): 55
[2020-05-18] MEDS: IBUPROFEN 400 MG TAB PO PRN (18:08)
[2020-05-18] MEDS ORDERED: TRAMADOL HCL 50 MG TAB PO ONE (20:17)
[2020-05-18] MEDS: DOCUSATE NA 100 MG CAP PO SCH (20:40)
[2020-05-18] MEDS: APIXABAN 5 MG TABLET PO SCH (20:40)
[2020-05-18] MEDS: MORPHINE 2 MG/ML SYR IV PRN (22:23)
[2020-05-19] MEDS: MORPHINE 2 MG/ML SYR IV PRN ×3 (04:11→23:50)
[2020-05-19 05:41] LABS: ALT/SGPT 49 U/L (12-78); AST/SGOT 43 U/L (15-37); Albumin 3.1 g/dL (3.4-5.0); Alkaline Phosphatase 49 U/L (45-117); Bilirubin Direct < 0.1 mg/dL (0-0.2); Bilirubin Total 0.2 mg/dL (0.2-1.0); Ferritin 105.9 ng/mL (8-388); Protein, Total 7.2 g/dL (6.4-8.2)
[2020-05-19] MEDS: IBUPROFEN 400 MG TAB PO PRN ×2 (06:27→16:51)
[2020-05-19] MEDS: METHYLPREDNISOLONE 40 MG INJ IV SCH ×2 (07:53→19:48)
[2020-05-19] MEDS: APIXABAN 5 MG TABLET PO SCH ×2 (07:54→19:48)
[2020-05-19] MEDS: VENLAFAXINE HCL 75 MG TABLET PO SCH (07:54)
[2020-05-19] MEDS: DOCUSATE NA 100 MG CAP PO SCH ×2 (07:54→19:48)
[2020-05-19] MEDS: FAMOTIDINE 20 MG/2 ML VIAL IV SCH ×2 (07:54→19:48)
--- NOTE | 2020-05-19 08:19 | P.PN ---
Subjective Date of Service: 05/19/20 Chief Complaint: Respiratory failure Subjective: Improving (Improving oxygen requirements are declining) Review of Systems Respiratory: Shortness of Breath Physical Examination - Vital Signs Temperature: 99.8 F Blood Pressure: 132/93 Pulse: 83 Respirations: 21 Pulse Ox (%): 89 - Studies Medications List Reviewed: Yes Assessment & Plan - Problems (Diagnosis) (1) 2019 novel coronavirus detected Current Visit: Yes Status: Acute Plan: Patient is improving continue to wean off the oxygen ferritin level is normal CRP declining patient is a have a slight fever repeat another dose of ivermectin tomorrow possibly prior to discharge
[2020-05-19] MEDS: VITAMIN D 1000 UNIT TAB PO SCH (08:56)
[2020-05-19] MEDS: ZINC SULFATE 220 MG CAP PO SCH (08:56)
[2020-05-19] MEDS: THIAMINE HCL 100 MG TABLET PO SCH ×2 (08:56→19:48)
[2020-05-19] MEDS: Remdesivir 100 MG in NA CHLORIDE 0.9% 250 ML IV SCH (08:56)
[2020-05-19] MEDS: ASCORBIC ACID 500 MG TABLET PO SCH ×3 (08:56→19:48)
--- NOTE | 2020-05-19 12:23 | P.PN ---
Subjective Date of Service: 05/19/20 Chief Complaint: Respiratory failure Subjective: Other (Slow improvement noted. Currently on 4-5 L per nasal cannula.) Physical Examination - Vital Signs Temperature: 99.6 F Blood Pressure: 132/93 Pulse: 108 Respirations: 23 Pulse Ox (%): 88 - Physical Exam General: Alert, Cooperative HEENT: Atraumatic Neck: Supple Respiratory: Other (On 4-5 L per nasal cannula) Cardiovascular: Normal pulses, Regular rate/rhythm Neurological: Normal speech, Normal strength at 5/5 x4 extr, Normal tone, Normal affect - Studies Medications List Reviewed: Yes Assessment & Plan Discharge Plan: Home Plan to discharge in: 24 Hours Physician Review Additional Text: Impression: Dyspnea secondary to acute respiratory failure with hypoxia related to bilateral COVID 19 pneumonia Depression with anxiety Obesity the [place] 44.9 Plan: Dyspnea secondary to acute respiratory failure with hypoxia related to bilateral COVID 19 pneumonia: Slow improvement noted. Continue IV steroids, Remdesivir, and supplementation. Continue to wean off oxygen. Currently on 4-5 L. Monitor CRP and ferritin. Continue DVT prophylaxis. Encourage ambulation. Encourage incentive spirometer. Possible discharge as early as tomorrow if maintaining below 4 L per nasal cannula without significant desaturation. Anticipate improvement over the next 24-48 hr Depression with anxiety: Continued home medication Obesity, BMI 44.9: Address lifestyle modification education. Time Spent Managing Pts Care (In Minutes): 55
[2020-05-19] MEDS: ACETAMINOPHEN 500 MG TAB PO PRN (15:45)
[2020-05-20] MEDS: MORPHINE 2 MG/ML SYR IV PRN ×3 (04:00→23:49)
[2020-05-20 05:32] LABS: ALT/SGPT 41 U/L (12-78); AST/SGOT 30 U/L (15-37); Albumin 2.8 g/dL (3.4-5.0); Alkaline Phosphatase 45 U/L (45-117); Bilirubin Direct < 0.1 mg/dL (0-0.2); Bilirubin Total 0.2 mg/dL (0.2-1.0); Ferritin 89.3 ng/mL (8-388); Protein, Total 6.5 g/dL (6.4-8.2)
[2020-05-20] MEDS ORDERED: IVERMECTIN 3 MG TABLET PO ONE (06:00)
[2020-05-20] MEDS: VENLAFAXINE HCL 75 MG TABLET PO SCH (08:35)
[2020-05-20] MEDS: ASCORBIC ACID 500 MG TABLET PO SCH ×3 (08:35→19:41)
[2020-05-20] MEDS: DOCUSATE NA 100 MG CAP PO SCH ×2 (08:35→19:41)
[2020-05-20] MEDS: APIXABAN 5 MG TABLET PO SCH ×2 (08:35→19:42)
[2020-05-20] MEDS: FAMOTIDINE 20 MG/2 ML VIAL IV SCH ×2 (08:35→19:42)
[2020-05-20] MEDS: METHYLPREDNISOLONE 40 MG INJ IV SCH ×2 (08:35→19:42)
[2020-05-20] MEDS: VITAMIN D 1000 UNIT TAB PO SCH (08:35)
[2020-05-20] MEDS: THIAMINE HCL 100 MG TABLET PO SCH ×2 (08:35→19:41)
[2020-05-20] MEDS: ZINC SULFATE 220 MG CAP PO SCH (08:35)
--- NOTE | 2020-05-20 08:56 | P.DS ---
Admission Date: 05/17/20 Discharge Date: 05/20/20 Primary Care Provider: Dr. Escudero Disposition: ROUTINE DISCHARGE Discharge Condition: GOOD Reason for Admission: Respiratory failure Consultations: Pulmonary-Dr. Leggett Procedures: COVID: Positive CT Scan: COMPARISON: No prior exams provided for comparison. FINDINGS: Diagnostic quality: There is fair opacification of the pulmonary arterial tree. Motion artifact degrades image quality and limits evaluation of segmental and subsegmental vessels. Lungs: Multifocal patchy consolidative changes, more confluent within the bilateral lower lobes. Airways are patent. Pleura: No effusion. No pneumothorax. Heart and pericardium: The heart is enlarged. No pericardial effusion. Mediastinum and williams: No pathologically enlarged lymph nodes. Lower neck and chest wall: Unremarkable Vessels: No pulmonary arterial filling defects. No thoracic aortic aneurysm. Upper abdomen: The liver is enlarged and diffusely low in density compatible with steatosis. Bones: Unremarkable IMPRESSION: 1. Somewhat suboptimal opacification of the pulmonary arterial tree as well as motion artifact which degrades image quality and limits evaluation of segmental and subsegmental vessels. No central pulmonary embolic disease identified. 2. Multifocal infiltrates bilaterally. 3. Other findings as above. Medical problem List: Dyspnea secondary to acute respiratory failure with hypoxia related to bilateral COVID 19 pneumonia Depression Obesity, BMI 45.4 Brief History of Present Illness: 34-year-old female presented to the emergency room with increasing shortness of breath and cough. Patient had been recently diagnosed with COVID. Patient required hospitalization. Hospital Course: Patient presented with dyspnea secondary to acute respiratory failure with hypoxia related to bilateral COVID 19 pneumonia with hypoxia. Patient had been diagnosed prior to admission. Patient required hospitalization including IV steroids, ivermectin, Remdesivir, and supplementation. The patient has improved. At discharge patient is requiring home oxygen. Patient able to ambulate appropriately without significant desaturation or shortness of breath. At discharge the patient will continue with prednisone 20 mg 1 pill twice daily for 7 days then 1 pill once daily for 7 days. Patient will be provided Tessalon 100 mg 3 times a day as needed for cough and Pro air 2 puffs 3 times a day as needed for shortness of breath. The patient will continue with Eliquis 5 mg 1 pill twice daily due to her risk of DVT and PE with COVID. CT scan showed no pulmonary embolism. The patient will also continue with zinc 220 mg daily, thiamine 100 mg twice daily, vitamin-D 2000 units daily, melatonin 5 mg every bedtime, and vitamin-C 500 mg 3 times a day. Recommend to continue proning when lying down. Recommend to continue with incentive spirometer. Patient to slowly increase ambulation. Patient is to monitor her oxygen saturation levels to maintain above 93%. At discharge patient will continue with home oxygen at 4 liters/minute. This will be arranged prior to discharge. Patient will continue with CDC guidelines on COVID 19 isolation. Patient will need isolate for at least 10 days. Patient will continue with social distancing, face mask use, and hand washing. Patient will need a follow up with pulmonology in 1 week to follow up this hospitalization and continue her care. Pulmonology will continue to adjust medication and wean off oxygen. Patient with depression. At discharge she will continue with her medications of Effexor 75 mg daily. Vital Signs/Physical Exam: Temp Pulse Resp BP Pulse Ox 96.5 F L 72 20 117/80 90 L 05/20/20 04:00 05/20/20 04:00 05/20/20 04:00 05/20/20 04:00 05/20/20 04:00 General: Alert, In no apparent distress, Oriented x3, Cooperative HEENT: Atraumatic Neck: Supple Respiratory: Other (Patient currently on 3-4 L without significant distress.) Cardiovascular: Normal pulses, Regular rate/rhythm Gastrointestinal: No guarding Neurological: Normal speech, Normal strength at 5/5 x4 extr, Normal tone, Normal affect Laboratory Data at Discharge: WBC 5.10 K/uL (4.3-10.9) 05/18/20 04:52 Hgb 11.5 g/dL (12.0-15.0) L 05/18/20 04:52 Hct 34.8 % (36.0-45.0) L 05/18/20 04:52 Plt Count 191 K/uL (152-406) 05/18/20 04:52 Sodium 141 mmol/L (136-145) 05/18/20 04:52 Potassium 4.3 mmol/L (3.5-5.1) 05/18/20 04:52 BUN 8 mg/dL (7-18) 05/18/20 04:52 Creatinine 0.62 mg/dL (0.55-1.3) 05/18/20 04:52 Glucose 178 mg/dL (74-106) H 05/18/20 04:52 Total Bilirubin 0.2 mg/dL (0.2-1.0) 05/20/20 04:48 AST 30 U/L (15-37) 05/20/20 04:48 ALT 41 U/L (12-78) 05/20/20 04:48 Alkaline Phosphatase 45 U/L (45-117) 05/20/20 04:48 Triglycerides 48 mg/dL (<150) 05/18/20 04:52 Cholesterol 113 mg/dL (<200) 05/18/20 04:52 HDL Cholesterol 45 mg/dL (40-60) 05/18/20 04:52 Cholesterol/HDL Ratio 2.51 05/18/20 04:52 Home Medications: Venlafaxine HCl [Effexor] 75 mg PO DAILY 05/18/20 Albuterol Inhaler [Ventolin Inhaler*] 2 puff IH Q6H PRN #1 hfa.aer.ad 05/20/20 Apixaban [Eliquis] 5 mg PO BID #60 tablet 05/20/20 Ascorbic Acid [Vitamin C*] 500 mg PO TID #90 tablet 05/20/20 Cholecalciferol (Vitamin D3) [Vitamin D 1000 Iu Tab*] 2,000 unit PO DAILY #60 tab 05/20/20 Melatonin 5 mg PO BEDTIME #30 tablet 05/20/20 Thiamine HCl [Vitamin B-1*] 100 mg PO BID #60 tablet 05/20/20 Zinc Sulfate [Zinc Sulfate*] 220 mg PO DAILY #30 cap 05/20/20 predniSONE [Prednisone*] 20 mg PO SEECOM #21 tab 05/20/20 New Medications: Apixaban [Eliquis] 5 mg PO BID #60 tablet Melatonin 5 mg PO BEDTIME #30 tablet predniSONE [Prednisone*] 20 mg PO SEECOM #21 tab Albuterol Inhaler [Ventolin Inhaler*] 2 puff IH Q6H PRN #1 hfa.aer.ad PRN Reason: Shortness Of Breath Thiamine HCl [Vitamin B-1*] 100 mg PO BID #60 tablet Ascorbic Acid [Vitamin C*] 500 mg PO TID #90 tablet Cholecalciferol (Vitamin D3) [Vitamin D 1000 Iu Tab*] 2,000 unit PO DAILY #60 tab Zinc Sulfate [Zinc Sulfate*] 220 mg PO DAILY #30 cap Physician Discharge Instructions: Follow up with PCP in 1 week to follow up this hospitalization. Patient presented with dyspnea secondary to acute respiratory failure with hypoxia related to bilateral COVID 19 pneumonia with hypoxia. Patient had been diagnosed prior to admission. Patient required hospitalization including IV steroids, ivermectin, Remdesivir, and supplementation. The patient has improved. At discharge patient is requiring home oxygen. Patient able to ambulate appropriately without significant desaturation or shortness of breath. At discharge the patient will continue with prednisone 20 mg 1 pill twice daily for 7 days then 1 pill once daily for 7 days. Patient will be provided Tessalon 100 mg 3 times a day as needed for cough and Pro air 2 puffs 3 times a day as needed for shortness of breath. The patient will continue with Eliquis 5 mg 1 pill twice daily due to her risk of DVT and PE with COVID. CT scan showed no pulmonary embolism. The patient will also continue with zinc 220 mg daily, thiamine 100 mg twice daily, vitamin-D 2000 units daily, melatonin 5 mg every bedtime, and vitamin-C 500 mg 3 times a day. Recommend to continue proning when lying down. Recommend to continue with incentive spirometer. Patient to slowly increase ambulation. Patient is to monitor her oxygen saturation levels to maintain above 93%. At discharge patient will continue with home oxygen at 4 liters/minute. This will be arranged prior to discharge. Patient will continue with CDC guidelines on COVID 19 isolation. Patient will need isolate for at le ast 10 days. Patient will continue with social distancing, face mask use, and hand washing. Patient will need a follow up with pulmonology in 1 week to follow up this hospitalization and continue her care. Pulmonology will continue to adjust medication and wean off oxygen. Patient with depression. At discharge she will continue with her medications of Effexor 75 mg daily. Diet: AHA Activity: Ad mary carmen Followup: Elliott Escudero MD [Primary Care Provider] - Time spent managing pt's care (in minutes): 55
[2020-05-20] MEDS: Remdesivir 100 MG in NA CHLORIDE 0.9% 250 ML IV SCH (09:08)
--- NOTE | 2020-05-20 09:08 | RAD REPORT ---
EXAM DESCRIPTION: RAD - Chest Single View - 05/20/2020 7:50 am CLINICAL HISTORY: follow up COVID Chest pain. COMPARISON: Chest Single View dated 05/17/2020 FINDINGS: Portable technique limits examination quality. Moderate bilateral pulmonary opacities are seen, mildly worse since the comparative study. The heart is normal in size. No displaced fractures. IMPRESSION: Mild worsening in lung aeration noted since comparative study.
[2020-05-20] MEDS ORDERED: TRAMADOL HCL 50 MG TAB PO PRN (09:20)
--- NOTE | 2020-05-20 15:24 | P.PN ---
Subjective Date of Service: 05/20/20 Primary Care Provider: Dr. Escudero Chief Complaint: Respiratory failure Subjective: Other (Patient was to be discharge today but patient oxygen requirement was increased.) Physical Examination - Vital Signs Temperature: 98.3 F Blood Pressure: 153/115 Pulse: 77 Respirations: 20 Pulse Ox (%): 86 - Physical Exam General: Alert HEENT: Atraumatic Neck: Supple Respiratory: Other (Patient on 4-5 L) Cardiovascular: Normal pulses Neurological: Normal speech, Normal strength at 5/5 x4 extr, Normal tone, Normal affect - Studies Medications List Reviewed: Yes Assessment & Plan Discharge Plan: Home Plan to discharge in: 48 Hours Physician Review Additional Text: Impression: Dyspnea secondary to acute respiratory failure with hypoxia related to bilateral COVID 19 pneumonia Depression with anxiety Obesity the [place] 44.9 Plan: Dyspnea secondary to acute respiratory failure with hypoxia related to bilateral COVID 19 pneumonia: Slow improvement noted. Patient was to be discharge but O2 requirement around 4-5 L. Will continue with current medications. Continue IV steroids, Remdesivir, and supplementation. Will continue to wean off oxygen. Monitor CRP and ferritin. Continue DVT prophylaxis. Encourage ambulation. Encourage incentive spirometer. Possible discharge as early as tomorrow if maintaining below 4 L per nasal cannula without significant desaturation. Anticipate improvement over the next 24-48 hr Depression with anxiety: Continued home medication Obesity, BMI 44.9: Address lifestyle modification education. Time Spent Managing Pts Care (In Minutes): 55
[2020-05-21] MEDS: MORPHINE 2 MG/ML SYR IV PRN (03:45)
[2020-05-21 04:12] VITALS: O2SAT 91
[2020-05-21 05:01] VITALS: BMI 46.0
[2020-05-21 05:54] LABS: ALT/SGPT 80 U/L (12-78); AST/SGOT 60 U/L (15-37); Albumin 2.9 g/dL (3.4-5.0); Alkaline Phosphatase 54 U/L (45-117); Bilirubin Direct < 0.1 mg/dL (0-0.2); Bilirubin Total 0.2 mg/dL (0.2-1.0); C-Reactive Protein 7.43 mg/L (<3.00); Ferritin 91.3 ng/mL (8-388); Protein, Total 6.6 g/dL (6.4-8.2)
[2020-05-21] MEDS: ASCORBIC ACID 500 MG TABLET PO SCH (07:57)
[2020-05-21] MEDS: VENLAFAXINE HCL 75 MG TABLET PO SCH (07:57)
[2020-05-21] MEDS: FAMOTIDINE 20 MG/2 ML VIAL IV SCH (07:58)
[2020-05-21] MEDS: VITAMIN D 1000 UNIT TAB PO SCH (07:58)
[2020-05-21] MEDS: ZINC SULFATE 220 MG CAP PO SCH (07:58)
[2020-05-21] MEDS: METHYLPREDNISOLONE 40 MG INJ IV SCH (07:58)
[2020-05-21] MEDS: THIAMINE HCL 100 MG TABLET PO SCH (07:58)
[2020-05-21] MEDS: DOCUSATE NA 100 MG CAP PO SCH (07:58)
[2020-05-21] MEDS: APIXABAN 5 MG TABLET PO SCH (07:58)
--- NOTE | 2020-05-21 08:58 | P.DS ---
Admission Date: 05/17/20 Discharge Date: 05/21/20 Primary Care Provider: Dr. Escudero Disposition: ROUTINE DISCHARGE Discharge Condition: GOOD Reason for Admission: Respiratory failure Consultations: Pulmonary-Dr. Leggett Procedures: COVID: Positive CT Scan: COMPARISON: No prior exams provided for comparison. FINDINGS: Diagnostic quality: There is fair opacification of the pulmonary arterial tree. Motion artifact degrades image quality and limits evaluation of segmental and subsegmental vessels. Lungs: Multifocal patchy consolidative changes, more confluent within the bilateral lower lobes. Airways are patent. Pleura: No effusion. No pneumothorax. Heart and pericardium: The heart is enlarged. No pericardial effusion. Mediastinum and williams: No pathologically enlarged lymph nodes. Lower neck and chest wall: Unremarkable Vessels: No pulmonary arterial filling defects. No thoracic aortic aneurysm. Upper abdomen: The liver is enlarged and diffusely low in density compatible with steatosis. Bones: Unremarkable IMPRESSION: 1. Somewhat suboptimal opacification of the pulmonary arterial tree as well as motion artifact which degrades image quality and limits evaluation of segmental and subsegmental vessels. No central pulmonary embolic disease identified. 2. Multifocal infiltrates bilaterally. 3. Other findings as above. Medical problem List: Dyspnea secondary to acute respiratory failure with hypoxia related to bilateral COVID 19 pneumonia Depression Obesity, BMI 45.4 Brief History of Present Illness: Brief History of Present Illness: 34-year-old female presented to the emergency room with increasing shortness of breath and cough. Patient had been recently diagnosed with COVID. Patient required hospitalization. Hospital Course: Patient presented with dyspnea secondary to acute respiratory failure with hypoxia related to bilateral COVID 19 pneumonia with hypoxia. Patient had been diagnosed prior to admission. Patient required hospitalization including IV steroids, ivermectin, Remdesivir, and supplementation. For stay was slightly prolonged due to her oxygen needs. The patient has improved and currently stable on less than 4 L per nasal cannula. At discharge patient is requiring home oxygen. Patient able to ambulate appropriately without significant desaturation or shortness of breath. At discharge the patient will continue with prednisone 20 mg 1 pill twice daily for 7 days then 1 pill once daily for 7 days. Patient will be provided Tessalon 100 mg 3 times a day as needed for cough and Pro air 2 puffs 3 times a day as needed for shortness of breath. The patient will continue with Eliquis 5 mg 1 pill twice daily due to her risk of DVT and PE with COVID. CT scan showed no pulmonary embolism. The patient will also continue with zinc 220 mg daily, thiamine 100 mg twice daily, vitamin-D 2000 units daily, melatonin 5 mg every bedtime, and vitamin-C 500 mg 3 times a day. Recommend to continue proning when lying down. Recommend to continue with incentive spirometer. Patient to slowly increase ambulation. Patient is to monitor her oxygen saturation levels to maintain above 93%. At discharge patient will continue with home oxygen at 4 liters/minute. This will be arranged prior to discharge. Patient will continue with CDC guidelines on COVID 19 isolation. Patient will need isolate for at least 10 days. Patient will continue with social distancing, face mask use, and hand washing. Patient will need a follow up with pulmonology in 1 week to follow up this hospitalization and continue her care. Pulmonology will continue to adjust medication and wean off oxygen. Patient with depression. At discharge she will continue with her medications of Effexor 75 mg daily. Vital Signs/Physical Exam: Temp Pulse Resp BP Pulse Ox 97.1 F 62 18 115/62 91 05/21/20 04:00 05/21/20 08:00 05/21/20 08:00 05/21/20 08:00 05/21/20 08:00 General: Alert, In no apparent distress, Oriented x3, Cooperative HEENT: Atraumatic Neck: Supple Respiratory: Other (Patient on 4 L per nasal cannula. No distress noted.) Cardiovascular: Normal pulses Integumentary: No warmth, No cyanosis Neurological: Normal speech, Normal strength at 5/5 x4 extr, Normal tone, Normal affect Laboratory Data at Discharge: WBC 5.10 K/uL (4.3-10.9) 05/18/20 04:52 Hgb 11.5 g/dL (12.0-15.0) L 05/18/20 04:52 Hct 34.8 % (36.0-45.0) L 05/18/20 04:52 Plt Count 191 K/uL (152-406) 05/18/20 04:52 Sodium 141 mmol/L (136-145) 05/18/20 04:52 Potassium 4.3 mmol/L (3.5-5.1) 05/18/20 04:52 BUN 8 mg/dL (7-18) 05/18/20 04:52 Creatinine 0.62 mg/dL (0.55-1.3) 05/18/20 04:52 Glucose 178 mg/dL (74-106) H 05/18/20 04:52 Total Bilirubin 0.2 mg/dL (0.2-1.0) 05/21/20 04:56 AST 60 U/L (15-37) H 05/21/20 04:56 ALT 80 U/L (12-78) H 05/21/20 04:56 Alkaline Phosphatase 54 U/L (45-117) 05/21/20 04:56 Triglycerides 48 mg/dL (<150) 05/18/20 04:52 Cholesterol 113 mg/dL (<200) 05/18/20 04:52 HDL Cholesterol 45 mg/dL (40-60) 05/18/20 04:52 Cholesterol/HDL Ratio 2.51 05/18/20 04:52 Home Medications: Venlafaxine HCl [Effexor] 75 mg PO DAILY 05/18/20 Albuterol Inhaler [Ventolin Inhaler*] 2 puff IH Q6H PRN #1 hfa.aer.ad 05/20/20 Apixaban [Eliquis] 5 mg PO BID #60 tablet 05/20/20 Ascorbic Acid [Vitamin C*] 500 mg PO TID #90 tablet 05/20/20 Cholecalciferol (Vitamin D3) [Vitamin D 1000 Iu Tab*] 2,000 unit PO DAILY #60 tab 05/20/20 Melatonin 5 mg PO BEDTIME #30 tablet 05/20/20 Thiamine HCl [Vitamin B-1*] 100 mg PO BID #60 tablet 05/20/20 Zinc Sulfate [Zinc Sulfate*] 220 mg PO DAILY #30 cap 05/20/20 predniSONE [Prednisone*] 20 mg PO SEECOM #21 tab 05/20/20 New Medications: Apixaban [Eliquis] 5 mg PO BID #60 tablet Melatonin 5 mg PO BEDTIME #30 tablet predniSONE [Prednisone*] 20 mg PO SEECOM #21 tab Albuterol Inhaler [Ventolin Inhaler*] 2 puff IH Q6H PRN #1 hfa.aer.ad PRN Reason: Shortness Of Breath Thiamine HCl [Vitamin B-1*] 100 mg PO BID #60 tablet Ascorbic Acid [Vitamin C*] 500 mg PO TID #90 tablet Cholecalciferol (Vitamin D3) [Vitamin D 1000 Iu Tab*] 2,000 unit PO DAILY #60 tab Zinc Sulfate [Zinc Sulfate*] 220 mg PO DAILY #30 cap Physician Discharge Instructions: Follow up with PCP in 1 week to follow up this hospitalization. Patient presented with dyspnea secondary to acute respiratory failure with hypoxia related to bilateral COVID 19 pneumonia with hypoxia. Patient had been diagnosed prior to admission. Patient required hospitalization including IV steroids, ivermectin, Remdesivir, and supplementation. The patient has improved. At discharge patient is requiring home oxygen. Patient able to ambulate appropriately without significant desaturation or shortness of breath. At discharge the patient will continue with prednisone 20 mg 1 pill twice daily for 7 days then 1 pill once daily for 7 days. Patient will be provided Tessalon 100 mg 3 times a day as needed for cough and Pro air 2 puffs 3 times a day as needed for shortness of breath. The patient will continue with Eliquis 5 mg 1 pill twice daily due to her risk of DVT and PE with COVID. CT scan showed no pulmonary embolism. The patient will also continue with zinc 220 mg daily, thiamine 100 mg twice daily, vitamin-D 2000 units daily, melatonin 5 mg every bedtime, and vitamin-C 500 mg 3 times a day. Recommend to continue proning when lying down. Recommend to continue with incentive spirometer. Patient to slowly increase ambulation. Patient is to monitor her oxygen saturation levels to maintain above 93%. At discharge patient will continue with home oxygen at 4 liters/minute. This will be arranged prior to discharge. Patient will continue with CDC guidelines on COVID 19 isolation. Patient will need isolate for at least 10 days. Patient will continue with social distancing, face mask use, and hand washing. Patient will need a follow up with pulmonology in 1 week to follow up this hospitalization and continue her care. Pulmonology will continue to adjust medication and wean off oxygen. Your prescriptions were sent to [facility]. Patient with depression. At discharge she will continue with her medications of Effexor 75 mg daily. Diet: AHA Activity: Ad mary carmen Followup: Darrick Leggett MD [ACTIVE - CAN ADMIT] - Elliott Esucdero MD [Primary Care Provider] - Time spent managing pt's care (in minutes): 55
[2020-05-21] MEDS: Remdesivir 100 MG in NA CHLORIDE 0.9% 250 ML IV SCH (09:02)
[2020-05-21 09:09] VITALS: TEMP 97.2
[2020-05-21 11:55] VITALS: BP 124/63
[2020-05-21] MEDS ORDERED: METHYLPREDNISOLONE 125 MG INJ IV SCH (21:00)
== END 2020-05-21 14:56 | disposition home or self-care (01) | DRG 177 ==
LOC: ER 20:01 → ERHOLD 23:17 → 3RD-ICU 23:41
PROVIDERS: ADMIT Family Medicine; ATTEND Family Medicine
PROC: XW033E5 Introduction of Remdesivir Anti-infective into Peripheral Vein, Percutaneous Approach, New Technology Group 5 (ICD-10-PCS; principal; 2020-05-18)
DX: U07.1 COVID-19 (principal); J12.82 Pneumonia due to coronavirus disease 2019; J96.01 Acute respiratory failure with hypoxia; Z68.42 Body mass index [BMI] 45.0-49.9, adult; F41.8 Other specified anxiety disorders; E66.01 Morbid (severe) obesity due to excess calories; Z88.1 Allergy status to other antibiotic agents; Z98.51 Tubal ligation status; Z79.899 Other long term (current) drug therapy; Z79.01 Long term (current) use of anticoagulants; Z79.52 Long term (current) use of systemic steroids
CPT/HCPCS: 0240U; 36415; 71045; 71275; 80053; 80061; 80076; 82728; 83605; 84145; 85025; 85379; 86140; 87040; 94760; 96365; 96366; 96375; 99285; J0456; J0696; J1100; J1650; J2270; J2405; J2920; J3475; J7030; J7050; Q9967